=== PATIENT | male | born 1995 | race African-American/Black ===

== ENCOUNTER 2024-03-04 03:23 | Observation (INO) ==
--- NOTE | 2024-03-04 03:57 | Emergency Department Note ---
Impression & Plan Trench feet, Accident caused by excessive cold due to weather conditions, Homeless, Leukocytosis, Drug abuse ED Provider Note NAME: VIKTORIYA PEDERSON AGE: 28 SEX: M : 1995 ARRIVES VIA: Ambulance INFORMANT: Patient ED PROVIDER(S): Rodo Hope DO CHIEF COMPLAINT: foot pain and shortness of breath HPI: Patient is a 28-year-old male with a history of methamphetamine abuse that presents to the ER for bilateral foot pain. He notes he has been out in the rain for the past 2 days. He has been unable to keep his feet dry. He admits to shortness of breath with a cough and congestion. Upon arrival he notes that shortness of breath has resolved. He denies any headache or change in vision. No chest pain. No belly pain. No nausea, vomiting, or diarrhea. No dysuria, urgency, or frequency. No other exacerbating or remitting factors. ADDITIONAL HISTORY OBTAINED: Per HPI Chronic Medical/Social Conditions Affecting Care: Per HPI PAST MEDICAL HISTORY:See Below PAST SURGICAL HISTORY:See Below FAMILY HISTORY:See Below SOCIAL HISTORY:See Below HOME MEDICATIONS:See Below ALLERGIES:See Below VITALS:See Below PHYSICAL EXAMINATION: GENERAL: Sitting up in bed, alert, well appearing, well nourished, no distress, non-toxic EYE EXAM: normal conjunctiva. OROPHARYNX: mucous membranes are moist NECK: supple, no nuchal rigidity, no adenopathy, non-tender LUNGS: Clear to auscultation. Normal chest wall mechanics HEART: no murmurs, S1 normal and S2 normal ABDOMEN: abdomen soft, non-tender, normo-active bowel sounds, no masses, no rebound or guarding. UPPER EXTREMITIES: Flexion and extension of bilateral shoulders elbows wrist and grasp intact. Radial pulse 2 out of 4 bilaterally. He palmar surfaces of the hands are edematous and erythematous. LOWER EXTREMITIES: Mary tension bilateral hips knees ankles intact. DPs 2 out of 4. Gross sensation intact. White discoloration of bilateral feet with erythema laterally over the toes. Foul-smelling. NEURO EXAM: Normal sensorium, cranial nerves II-XII grossly intact, normal speech, no gross weakness of arms, no gross weakness of legs. MEDICAL DECISION MAKING: Patient is a 28-year-old male who presents ER for above-stated complaint. He is homeless and has been out in the cold rain for the past several days. IV was established medicals obtained. Admits to a cough and some mild shortness of breath as well as congestion. Labs show mild leukocytosis of 12,000. No anemia. BMP along LFTs bilirubin and lipase is unremarkable. Viral panel was ordered. Chest x-ray was unremarkable. Patient was given IV fluids and Ativan. He was updated bedside. He was discussed with the hospitalist for further evaluation management and treatment due to trench foot with cold exposure in the setting of a of being homeless as this will clearly worsen and progress. Consults/Care Managements Discussions: Per [facility] Triage Nursing notes reviewed. Limited review of prior medical records performed Vital Signs: reviewed and remarkable for no significant abnormalities Differential diagnosis: Cellulitis, abscess, MRSA infection, DVT, necrotizing fasciitis, dermatitis, drug eruption, allergic reaction, as well as other pathologies. ER treatment provided: See below Diagnostics interpreted by me include EKG and cardiac monitoring as listed below: -Cardiac Monitoring: An order was placed for continuous cardiac monitoring. The monitor shows a rate of 60 with sinus rhythm. -ECG: Sinus rhythm rate is 65 Inverted p waves in the inferior leads QTc 407 -Laboratory studies:Interpreted by me as stated above in MDM and shown below. Imaging studies: Xrays: As interpreted by me: Portable AP upright 1 view of the chest shows no focal infiltrate CTs show: none Past Med/Surg History Medical History No pertinent family history Methamphetamine abuse Drug addiction Surgical History No pertinent past surgical history Social History Smoking Status: Current some day smoker Tobacco Type: Cigarettes Hx Substance Use: Yes Preferred Language: Vincentian Feels Safe at Home: Yes Gender Identity: Male Allergies Allergies Allergy/AdvReac Type Severity Reaction Status Date / Time No Known Allergies Allergy Verified 02/11/24 19:45 Home Meds Home Medications Medication Instructions Recorded Confirmed No Known Home Medications 01/08/24 02/11/24 Results & Data (ED) Vital Signs Vital Signs - 24 hr 03/04/24 03:18 03/04/24 03:18 03/04/24 03:18 Temperature 36.4 C L 36.4 C L Temperature Source Oral Oral Pulse Rate 63 Pulse Rate [Apical] 63 Pulse Rhythm Regular Pulse Rhythm [Apical] Regular Pulse Strength Normal Pulse Strength [Apical] Normal Respiratory Rate 18 18 Respiratory Effort / Characteristics Non-Labored Spontaneous Non-Labored Spontaneous Respiratory Depth Normal Normal Respiratory Pattern Regular Regular Blood Pressure 143/93 H Blood Pressure [Right Arm] 143/93 H Blood Pressure Mean 109 Blood Pressure Mean [Right Arm] 109 Blood Pressure Position Lying Blood Pressure Position [Right Arm] Lying Pulse Oximetry 98 98 98 Oxygen Delivery Method Room Air Room Air Room Air Sepsis Recent Fever Within 48 Hours No Sepsis New/Unexplained Change in Mental Status N/A Sepsis Action Taken by Nursing No Action Required 03/04/24 03:18 03/04/24 03:39 03/04/24 03:44 Temperature Temperature Source Pulse Rate 63 107 H 63 Pulse Rate [Apical] Pulse Rhythm Regular Regular Pulse Rhythm [Apical] Pulse Strength Pulse Strength [Apical] Respiratory Rate 20 18 Respiratory Effort / Characteristics Respiratory Depth Respiratory Pattern Blood Pressure Blood Pressure [Right Arm] Blood Pressure Mean Blood Pressure Mean [Right Arm] Blood Pressure Position Blood Pressure Position [Right Arm] Pulse Oximetry 98 98 Oxygen Delivery Method Room Air Room Air Sepsis Recent Fever Within 48 Hours Sepsis New/Unexplained Change in Mental Status Sepsis Action Taken by Nursing Laboratory Data 03/04/24 03:45 03/04/24 03:45 Lab Results 03/04/24 Range/Units 03:45 WBC 12.57 H (4.8-10.8) K/ul RBC 4.91 (4.70-6.10) M/uL Hgb 13.4 L (14.0-18.0) g/dl Hct 42.0 (42.0-52.0) % MCV 85.5 (80.0-100.0) fL MCH 27.3 (25.0-34.0) pg MCHC 31.9 L (32.0-36.0) g/dL RDW Std Deviation 45.8 (36.4-46.3) fL RDW Coeff of Dominic 14.7 H (11.5-14.5) % Plt Count 405 H (130-400) K/uL MPV 10.1 (9.4-12.4) fL Immature Gran % (Auto) 0.3 % Neut % (Auto) 84.3 % Lymph % (Auto) 5.6 % [place] % (Auto) 9.1 % Eos % (Auto) 0.4 % Baso % (Auto) 0.3 % Neut # (Auto) 10.60 H (1.40-6.50) K/uL Lymph # (Auto) 0.70 L (1.20-3.40) K/uL [place] # (Auto) 1.14 H (0.11-0.59) K/uL Eos # (Auto) 0.05 (0.00-0.50) K/uL Baso # (Auto) 0.04 (0.00-0.20) K/uL Immature Gran # (Auto) 0.04 (0.01-0.20) K/uL Sodium 137 (136-145) mmol/L Potassium 3.7 (3.5-5.1) mmol/L Chloride 102 (98-107) mmol/L Carbon Dioxide 25 (21-32) mmol/L Anion Gap 10 (3-11) BUN 19 (6-23) mg/dl Creatinine 0.97 (0.6-1.4) mg/dl Est Cr Clr Drug Dosing Not Reportable Est GFR ( Amer) 123.5 ml/min Est GFR (Non-Af Amer) 106.6 ml/min BUN/Creatinine Ratio 19.6 (10-20) Glucose 102 H (70-99(Fasting)) mg/dl Calcium 10.1 (8.6-10.3) mg/dl Total Bilirubin 0.7 (0.2-1.0) mg/dl AST 37 (13-39) U/L ALT 54 H (7-52) U/L Alkaline Phosphatase 61 (34-104) U/L Troponin I High Sens 2.9 (0-20) pg/ml Total Protein 8.1 (6.0-8.3) gm/dl Albumin 5.0 (3.4-5.0) gm/dl Globulin 3.1 (2.5-4.0) gm/dl Albumin/Globulin Ratio 1.6 (0.9-2) Lipase 16 (11-82) U/L Discharge Plan Visit Data Chief Complaint: Altered Mental Status Stated Complaint: ALTERED, POSSIBLE DRUGS/ALCOHOL ED Provider: Rodo Hope Discharge Problem: Trench feet, Accident caused by excessive cold due to weather conditions, Homeless, Leukocytosis, Drug abuse Forms Stand Alone Forms: My [facility] Prescriptions Prescriptions: No Action No Known Home Medications Referrals Referrals: PCP,NO [Primary Care Provider] - Discharge Problem: Trench feet Qualifiers: Encounter type: initial encounter Laterality: unspecified laterality Qualified Code(s): T69.029A - Immersion foot, unspecified foot, initial encounter Accident caused by excessive cold due to weather conditions Qualifiers: Encounter type: initial encounter Qualified Code(s): X31.XXXA - Exposure to excessive natural cold, initial encounter Leukocytosis Qualifiers: Leukocytosis type: unspecified Qualified Code(s): D72.829 - Elevated white blood cell count, unspecified
[2024-03-04 04:14] LABS: Basophils # (auto) 0.04 K/uL (0.00-0.20); Basophils % (auto) 0.3 %; Eosinophils # (auto) 0.05 K/uL (0.00-0.50); Eosinophils % (auto) 0.4 %; Hemoglobin 13.4 g/dl (14.0-18.0); Immature Granulocytes # (auto) 0.04 K/uL (0.01-0.20); Immature Granulocytes % (auto) 0.3 %; Lymphocytes % (auto) 5.6 %; Mean Corpuscular Hemoglobin 27.3 pg (25.0-34.0); Mean Corpuscular Hgb Conc 31.9 g/dL (32.0-36.0); Mean Corpuscular Volume 85.5 fL (80.0-100.0); Mean Platelet Volume 10.1 fL (9.4-12.4); Monocytes # (auto) 1.14 K/uL (0.11-0.59); Monocytes % (auto) 9.1 %; Neutrophils % (auto) 84.3 %; Platelet Count 405 K/uL (130-400); RDW Coefficient of Variation 14.7 % (11.5-14.5); RDW Standard Deviation 45.8 fL (36.4-46.3); Red Blood Count 4.91 M/uL (4.70-6.10); White Blood Count 12.57 K/ul (4.8-10.8)
[2024-03-04 04:32] LABS: Alanine Aminotransferase 54 U/L (7-52); Albumin Globulin Ratio 1.6 (0.9-2); Alkaline Phosphatase 61 U/L (34-104); Anion Gap 10 (3-11); Aspartate Aminotransferase 37 U/L (13-39); BUN Creatinine Ratio 19.6 (10-20); Bilirubin,Total 0.7 mg/dl (0.2-1.0); Blood Urea Nitrogen 19 mg/dl (6-23); Calcium 10.1 mg/dl (8.6-10.3); Carbon Dioxide 25 mmol/L (21-32); Chloride 102 mmol/L (98-107); Est GFR (African American) 123.5 ml/min; Est GFR (Non-African American) 106.6 ml/min; Globulin 3.1 gm/dl (2.5-4.0); Glucose 102 mg/dl (70-99(Fasting)); Lipase 16 U/L (11-82); Potassium 3.7 mmol/L (3.5-5.1); Sodium 137 mmol/L (136-145); Total Protein 8.1 gm/dl (6.0-8.3)
[2024-03-04 04:37] LABS: Troponin I High Sensitivity 2.9 pg/ml (0-20)
--- NOTE | 2024-03-04 05:19 | History & Physical Report ---
Date of Service March 04, 2024 Assessment & Plan (1) Trench feet: (2) Drug addiction: (3) Methamphetamine abuse: (4) Homeless: (5) Accident caused by excessive cold due to weather conditions: Plan Trench feet- Patient is homeless and found out in the cold and wet weather, with inability to keep feet dry Consult wound care Zosyn 4.5 g IV every 8 hours Drug abuse/methamphetamine abuse history- Tendency toward agitation Lorazepam 1 mg IV every 6 hours as needed Zyprexa 5 mg IM every 6 hours as needed Dehydration/poor oral intake- Status post 1 L normal saline in the ED Placed on NSS + KCl 20 mill equivalents at 100 mL/h x 2 L Disposition- nutrition services associate will need to be involved History of Present Illness Chief Complaint: The patient was brought into the emergency department via ambulance, after being found out in the excessive cold and rain due to homelessness, and drug abuse Primary Care Provider: NO PCP The patient is a 28-year-old male, frequently seen in the ED for issues related to methamphetamine abuse, who is brought into the emergency department by emergency services after being found out in the cold and rain and concerns regarding his health. Patient is unable to contribute HPI or review of systems due to current mental state Allergies Allergy/AdvReac Type Severity Reaction Status Date / Time No Known Allergies Allergy Verified 02/11/24 19:45 Home Medications Medication Instructions Recorded Confirmed Type No Known Home Medications 01/08/24 02/11/24 History Past Med/Surg History Medical History (Updated 03/04/24 @ 06:20 by Joesph Garner MD) Methamphetamine abuse No pertinent family history Drug addiction Surgical History No pertinent past surgical history Social History Smoking Status: Current some day smoker Tobacco Type: Cigarettes Hx Substance Use: Yes Preferred Language: Tajik Feels Safe at Home: Yes Gender Identity: Male Review of Systems Review of Systems: Review of systems is not possible due to current mental state Physical Exam Physical Exam: The patient is not responsive off, but appears to be hyperalgesic and mildly agitated as nurses are working with him HEENT--PERRL, EOMI, mucous membranes and oropharynx dry. Neck--supple. No JVD. No bruits. Thyroid normal, trachea midline, no adenopathy. Heart--normal S1 and S2. No murmurs, rubs or gallops. Lungs--clear bilaterally, no respiratory distress, no accessory muscle use. Abdomen--normal bowel sounds and soft. Nontender. Nondistended Extremities--bilateral feet with erythema, and sloughing of skin Dermatologic--as above Neurologic--cranial nerves II through XII grossly intact. Rheumatologic-- limited exam Psychiatric--unresponsive Results & Data Results & Data Vital Signs (Past 12 Hours) Vital Signs Temp Pulse Pulse Resp BP BP Pulse Ox 03/04/24 03:44 63 18 98 03/04/24 03:39 107 H 03/04/24 03:18 63 20 98 03/04/24 03:18 36.4 C L 63 18 143/93 H 98 03/04/24 03:18 98 03/04/24 03:18 36.4 C L 63 18 143/93 H 98 O2 Del Method 03/04/24 03:44 Room Air 03/04/24 03:39 03/04/24 03:18 Room Air 03/04/24 03:18 Room Air 03/04/24 03:18 Room Air 03/04/24 03:18 Room Air Laboratory Results Laboratory Results WBC 12.57 K/ul (4.8-10.8) H 03/04/24 03:45 RBC 4.91 M/uL (4.70-6.10) 03/04/24 03:45 Hgb 13.4 g/dl (14.0-18.0) L 03/04/24 03:45 Hct 42.0 % (42.0-52.0) 03/04/24 03:45 MCV 85.5 fL (80.0-100.0) 03/04/24 03:45 MCH 27.3 pg (25.0-34.0) 03/04/24 03:45 MCHC 31.9 g/dL (32.0-36.0) L 03/04/24 03:45 RDW Std Deviation 45.8 fL (36.4-46.3) 03/04/24 03:45 RDW Coeff of Dominic 14.7 % (11.5-14.5) H 03/04/24 03:45 Plt Count 405 K/uL (130-400) H 03/04/24 03:45 MPV 10.1 fL (9.4-12.4) 03/04/24 03:45 Immature Gran % (Auto) 0.3 % 03/04/24 03:45 Neut % (Auto) 84.3 % 03/04/24 03:45 Lymph % (Auto) 5.6 % 03/04/24 03:45 [place] % (Auto) 9.1 % 03/04/24 03:45 Eos % (Auto) 0.4 % 03/04/24 03:45 Baso % (Auto) 0.3 % 03/04/24 03:45 Neut # (Auto) 10.60 K/uL (1.40-6.50) H 03/04/24 03:45 Lymph # (Auto) 0.70 K/uL (1.20-3.40) L 03/04/24 03:45 [place] # (Auto) 1.14 K/uL (0.11-0.59) H 03/04/24 03:45 Eos # (Auto) 0.05 K/uL (0.00-0.50) 03/04/24 03:45 Baso # (Auto) 0.04 K/uL (0.00-0.20) 03/04/24 03:45 Immature Gran # (Auto) 0.04 K/uL (0.01-0.20) 03/04/24 03:45 Sodium 137 mmol/L (136-145) 03/04/24 03:45 Potassium 3.7 mmol/L (3.5-5.1) 03/04/24 03:45 Chloride 102 mmol/L (98-107) 03/04/24 03:45 Carbon Dioxide 25 mmol/L (21-32) 03/04/24 03:45 Anion Gap 10 (3-11) 03/04/24 03:45 BUN 19 mg/dl (6-23) 03/04/24 03:45 Creatinine 0.97 mg/dl (0.6-1.4) 03/04/24 03:45 Est Cr Clr Drug Dosing Not Reportable 03/04/24 03:45 Est GFR ( Amer) 123.5 ml/min 03/04/24 03:45 Est GFR (Non-Af Amer) 106.6 ml/min 03/04/24 03:45 BUN/Creatinine Ratio 19.6 (10-20) 03/04/24 03:45 Glucose 102 mg/dl (70-99(Fasting)) H 03/04/24 03:45 Calcium 10.1 mg/dl (8.6-10.3) 03/04/24 03:45 Total Bilirubin 0.7 mg/dl (0.2-1.0) 03/04/24 03:45 AST 37 U/L (13-39) 03/04/24 03:45 ALT 54 U/L (7-52) H 03/04/24 03:45 Alkaline Phosphatase 61 U/L (34-104) 03/04/24 03:45 Troponin I High Sens 2.9 pg/ml (0-20) 03/04/24 03:45 Total Protein 8.1 gm/dl (6.0-8.3) 03/04/24 03:45 Albumin 5.0 gm/dl (3.4-5.0) 03/04/24 03:45 Globulin 3.1 gm/dl (2.5-4.0) 03/04/24 03:45 Albumin/Globulin Ratio 1.6 (0.9-2) 03/04/24 03:45 Lipase 16 U/L (11-82) 03/04/24 03:45 Code Status & VTE Plan Code Status Full code VTE Prophylaxis Plan VTE Prophylaxis will be ordered: Yes PG Care Time/CCT Total # of Minutes Spent Total Time Spent with Patient: Total time spent is greater than 50% in coordination of care (as documented) at patient's floor/unit and/or counseling patient: Coding Level of Care Code 94179 INT INP/OBS CARE 3/75MIN Diagnoses Trench feet T69.029A Encounter type: initial encounter Laterality: unspecified laterality Drug addiction F19.20 Methamphetamine abuse F15.10 Homeless Z59.00 Accident caused by excessive cold due to weather conditions X31.XXXA Encounter type: initial encounter (1) Trench feet Encounter type: initial encounter Laterality: unspecified laterality Qualified Code(s): T69.029A - Immersion foot, unspecified foot, initial encounter (5) Accident caused by excessive cold due to weather conditions Encounter type: initial encounter Qualified Code(s): X31.XXXA - Exposure to excessive natural cold, initial encounter
[2024-03-04] MEDS: SODIUM CHLORIDE 0.9% 1,000 ML IV ONE (05:40)
[2024-03-04] MEDS: LORazepam 1 MG/1 ML SYR ED Inj Use IV STA (06:34)
[2024-03-04] MEDS: NSS + 20MEQ KCL 20 MEQ/1,000 ML BAG IV SCH (07:00)
--- NOTE | 2024-03-04 07:29 | XRay Report ---
XR chest 1V portable CLINICAL HISTORY: Chest pain, nonspecific TECHNIQUE: Single frontal radiograph of the chest was obtained. Comparison: None available at the time of this dictation. FINDINGS: No lines and tubes are seen. The cardiomediastinal silhouette is normal. The lungs are clear. No evid ence of pleural effusion or pneumothorax. IMPRESSION: No acute chest disease. ACT 112: Negative or not required by law. Electronically signed by: Nick Nichols M.D. 03/04/2024 7:27 AM
--- NOTE | 2024-03-04 07:32 | Communication Note ---
Date of Service: March 04, 2024 28 y/o homeless gentleman admitted with trench foot (nonfreezing cold injury) of both feet due to cold/wet exposure. No systemic hypothermia or frostbite on presentation. examined today and no whitish or necrotic areas, no wounds, has some foot pain, flaky and cracking skin c/w tinea pedis, erythema without induration or significant warmth forefeet and toes -treated with IV fluids, passive rewarming -analgesia - NSAIDS, amitriptyline 50-100 HS or gabapentin can be helpful -unclear whether cellulitis may be just hyperemia from reperfusion, currently on antibiotics, not severe and will narrow to cefazolin. Leukocytosis of 12K in ED, however, CBC appeared hemoconcentrated -miconazole cream for tinea pedis -anticipate discharge tomorrow on oral or no antibiotics -states he may be let back into [facility] tomorrow vs sometimes staying with friends URI - I reviewed the CXR film and it is clear. Resp biofire rhinovirus. Not hypoxic. Supportive care. Seems relatively asymptomatic
[2024-03-04 07:36] LABS: Adenovirus PCR Not Detected (NotDetected); Bordetella parapertussis PCR Not Detected (NotDetected); Bordetella pertussis PCR Not Detected (NotDetected); Chlamydia pneumoniae PCR Not Detected (NotDetected); Coronavirus 229E PCR Not Detected (NotDetected); Coronavirus CoV-2 (COVID19)PCR Not Detected (NotDetected); Coronavirus HKU1 PCR Not Detected (NotDetected); Coronavirus NL63 PCR Not Detected (NotDetected); Coronavirus OC43PCR Not Detected (NotDetected); Human Metapneumovirus PCR Not Detected (NotDetected); Influenza A PCR Not Detected (NotDetected); Influenza B PCR Not Detected (NotDetected); Mycoplasma pneumoniae PCR Not Detected (NotDetected); Parainfluenza Virus 1 PCR Not Detected (NotDetected); Parainfluenza Virus 2 PCR Not Detected (NotDetected); Parainfluenza Virus 3 PCR Not Detected (NotDetected); Parainfluenza Virus 4 PCR Not Detected (NotDetected); Respiratory Syncytial VirusPCR Not Detected (NotDetected); Rhinovirus/Enterovirus PCR DETECTED (NotDetected)
[2024-03-04] MEDS ORDERED: ONDANSETRON INJ 2 MG/ML 2 ML VIAL IV PRN (08:34)
[2024-03-04] MEDS ORDERED: OLANZapine 10 MG/2.1 ML SDV IM PRN (08:34)
[2024-03-04] MEDS ORDERED: LORazepam 1 MG in SYRINGE 0.5 ML IV PRN (08:34)
[2024-03-04] MEDS ORDERED: Patient's HEIGHT &/or WEIGHT Needed SCH (09:15)
[2024-03-04] MEDS: ENOXAPARIN INJ 40 MG/0.4 ML SYR SQ SCH (10:49)
[2024-03-04] MEDS: PANTOprazole 40 MG in SYRINGE 0 ML IV SCH (10:50)
[2024-03-04] MEDS: PIPERACILLIN/TAZOBACTAM 4.5 GM/100 ML BAG IV STA (11:43)
[2024-03-04] MEDS: PIPERACILLIN/TAZOBACTAM 4.5 GM in DEXTROSE 5% MINI-B 100 ML IV SCH (17:05)
[2024-03-04] MEDS: LORazepam 1 MG TAB PO PRN (17:37)
[2024-03-04] MEDS: NICOTINE 21 MG/24 HR TDSY TD SCH (17:38)
[2024-03-04] MEDS: MICONAZOLE NITRATE 2% CR 30 GM TUBE EXT SCH (21:00)
[2024-03-04] MEDS: ceFAZolin 2000MG 2,000 MG/15 ML SYR IV SCH (23:39)
[2024-03-05 07:14] LABS: Hematocrit (blood only) 37.9 % (42.0-52.0); Hemoglobin 12.6 g/dl (14.0-18.0); Mean Corpuscular Hemoglobin 27.8 pg (25.0-34.0); Mean Corpuscular Hgb Conc 33.2 g/dL (32.0-36.0); Mean Corpuscular Volume 83.7 fL (80.0-100.0); Mean Platelet Volume 10.3 fL (9.4-12.4); Platelet Count 335 K/uL (130-400); RDW Coefficient of Variation 14.6 % (11.5-14.5); RDW Standard Deviation 44.8 fL (36.4-46.3); Red Blood Count 4.53 M/uL (4.70-6.10); White Blood Count 5.07 K/ul (4.8-10.8)
[2024-03-05 07:30] LABS: BUN Creatinine Ratio 13.3 (10-20); Calcium 8.7 mg/dl (8.6-10.3); Creatinine Clr Calc Pharmacy 157.1 ml/min; Est GFR (African American) 139.8 ml/min; Est GFR (Non-African American) 120.6 ml/min; Potassium 3.8 mmol/L (3.5-5.1)
[2024-03-05] MEDS: cephALEXin 500 MG CAP PO SCH (13:36)
--- NOTE | 2024-03-05 19:26 | Discharge Summary ---
Date of Service March 05, 2024 Admission HPI Per Admitting Provider The patient is a 28-year-old male, frequently seen in the ED for issues related to methamphetamine abuse, who is brought into the emergency department by emergency services after being found out in the cold and rain and concerns regarding his health. Patient is unable to contribute HPI or review of systems due to current mental state Principal Diagnosis non-freezing cold injury to bilateral feet, possible mild foot cellulitis resolved, tinea pedis, acute toxic metabolic encephalopathy Discharge Exam AOx4 appears well No cough bilateral feet with no whitish or necrotic areas, no wounds, erythema nearly resolved, flaky and cracking skin c/w tinea pedis Discharge Data Allergies Allergy/AdvReac Type Severity Reaction Status Date / Time No Known Allergies Allergy Verified 03/04/24 17:19 Consultations 03/04/24 04:44 ED Decision to Admit Stat Ordered Studies Chest X-Ray 03/04/24 03:44 XR chest 1V portable CLINICAL HISTORY: Chest pain, nonspecific TECHNIQUE: Single frontal radiograph of the chest was obtained. Comparison: None available at the time of this dictation. FINDINGS: No lines and tubes are seen. The cardiomediastinal silhouette is normal. The lungs are clear. No evidence of pleural effusion or pneumothorax. IMPRESSION: No acute chest disease. ACT 112: Negative or not required by law. Electronically signed by: Nick Nichols M.D. 03/04/2024 7:27 AM 03/05/24 06:37 03/05/24 06:37 Hospital Course (1) Trench feet: 28 y/o homeless gentleman admitted with trench foot (nonfreezing cold injury) of both feet due to cold/wet exposure. No systemic hypothermia or frostbite on presentation. Treated with passive rewarming, IV fluids, pain control and resolved. Has some residual numbness of toes - likely to improve over weeks/months but sometimes can be permanent Possible mild bilateral foot cellulitis with leukocytosis treated with IV antibiotics and complete a course of po keflex on discharge. I'm not convinced it was actually infection and may have been all hyperemia from rewarming, but treated because he did have leukocytosis, which resolved. Antifungal cream for tinea pedis. Acute toxic metabolic encephalopathy - on presentation in ED was lethargic, later agitated. This resolved by next morning. Has history of methamphetamine abuse, Utox not done, also had cold exposure and possible infection to account for this. Recommended stopping meth - he has been making efforts at this. (2) Drug addiction: (3) Methamphetamine abuse: (4) Homeless: (5) Accident caused by excessive cold due to weather conditions: Plan Disposition - has been staying with friends, looking into that for today and is able to go back into his long-term 4/5. Total Time Total Time Spent Total Time Spent (In Minutes): 25 minutes Discharge Plan Discharge Items Patient Disposition: Home - Self-Care Reason For Visit: TRENCH FEET, AGITATION, METH ABUSE Discharge Diagnosis: Non-freezing cold injury to feet (trench foot), possible foot cellulitis, tinea pedis, rhinovirus Activity: Resume your previous activity Non-emergency contact: Primary Care Provider Call non-emergency contact if: you have any medication questions and your symptoms worsen Follow-up/Referrals: Bill Irving CRNP [Nurse Practitioner] - 03/09/24 11:00 am (Hospital follow up appointment) PCP,NO [Primary Care Provider] - Diet: Regular Addtl Attending Provider Instructions: Gently wash and dry feet. dust with antifungal powder. Keep warm and dry. Cold exposure can cause numbness and foot pain. Often this resolves over time, but in some cases can be long-term A good place to follow up for primary care is [facility] [address] [place] [address] Pending Studies at Discharge: No Stand-Alone Forms: My [facility] [place], Smoking Cessation Medications and DC Order Prescriptions: New cephalexin 500 mg Capsule 500 mg PO BID Qty: 10 0RF miconazole nitrate 2 % Cream 1 applic EXT BID Qty: 28 0RF Rx Instructions: apply small amount to feet twice a day No Action No Known Home Medications Discharge Orders: Discharge Order (Routine); Ordered 03/05/24 Ordered By: Ericka Holguin/Other Patient Handouts: Addiction Questionnaire, Addiction Recovery Counseling Admission Data Admit Date/Time: 03/04/24 05:18 Attending Provider: Joesph Garner Admit Provider: Joesph Garner Primary Care Provider: PCP,NO Other Providers: Joesph Garner Other Interventions: Discharge Summary Assessment (RN) Last Done: 03/05/24 13:41 Coding Level of Care Code 92801 IN/OBS DISCH 30 MIN/LESS Diagnoses Trench feet T69.029A Encounter type: initial encounter Laterality: unspecified laterality Drug addiction F19.20 Methamphetamine abuse F15.10 Homeless Z59.00 Accident caused by excessive cold due to weather conditions X31.XXXA Encounter type: initial encounter
[2024-03-05] MEDS ORDERED: cephALEXin 500 MG CAP PO SCH (21:00)
--- NOTE | 2024-03-07 00:18 | Electrocardiogram Report ---
Test Reason : Blood Pressure : / mmHG Vent. Rate : 065 BPM Atrial Rate : 065 BPM P-R Int : 184 ms QRS Dur : 092 ms QT Int : 392 ms P-R-T Axes : -88 066 066 degrees QTc Int : 407 ms Unusual P axis, possible ectopic atrial rhythm Abnormal ECG When compared with ECG of 11-FEB-2024 03:24, Ectopic atrial rhythm has replaced Sinus rhythm Confirmed by Krish Curry ([id number]) on 03/07/2024 12:17:55 AM Referred By: NO PCP Confirmed By:Krish Curry
== END 2024-03-05 14:15 | disposition home or self-care (01) ==
LOC: SUATTDRO → ED 03:23 → EDINP 05:18 → INTOOBSV 05:18 → 3E 08:34

== ENCOUNTER 2024-03-28 10:17 | Observation (INO) ==
--- NOTE | 2024-03-28 11:04 | Emergency Department Note ---
Impression & Plan Altered mental status ED Provider Note NAME: VIKTORIYA PEDERSON AGE: 28 SEX: Male INFORMANT: Patient ED PROVIDER(S): Jose Hare MD CHIEF COMPLAINT: Altered mental status PLAN: Disposition: Admitted Outpatient prescription management: none Referral: None MEDICAL DECISION MAKING: Patient presented due to altered mental status. Admitted to meth and marijuana. The Ativan was initially ordered for sedation however it did take multiple times to get an IV. During that time I did order sublingual Ativan. IV established. Patient was hydrated. Ativan order placed however the patient declined. Patient was monitored. The patient has an unremarkable alcohol, Tylenol, and salicylate testing. His CBC and chemistry panel are unremarkable. Mild elevation of total CK. Cardiac troponin was negative. His ECG did show a sinus rhythm. The patient's altered mental status slowly improved although he was still responding to internal stimuli. He was requesting a room to recover. I did discuss options with him. At this point due to his slow clearance of this episode I consulted with internal medicine. Discussed the case with of the hospitalist service. We reviewed the situation and discussed admission until his mental status improved. The patient was evaluated by internal medicine and was cooperative for admission. He then had a brief time where he was asking to leave as he was very hungry. The patient was given food. He was reassessed by myself as well as Luis in the PA for the internal medicine team. The patient was more calm and directable. He was in agreement with staying. Staff here noted that from his prior visits that he is approaching closer to his baseline. Patient was admitted for further management. Care/management discussed with: none Level of care consideration(s): After review of the information above and other included data, I feel the patient requires escalation of care to admission Triage Nursing notes: reviewed and agree them. Vital Signs: reviewed and remarkable for no significant abnormalities Additional History obtained from: none Chronic Medical/Social Conditions affecting care: Homelessness, drug abuse Prior/ Outside/ External records reviewed: none Differential Diagnosis: Toxicologic infection, hypoglycemia, electrolyte abnormalities, overdose, cardiac sources, intracerebral event, neurologic, trauma, as well as other pathologies. Diagnostics, independently interpreted by me: ECG: Twelve-lead ECG reveals a sinus rhythm with sinus arrhythmia at [address] elevation or depression. Cardiac Monitoring: Cardiac monitoring ordered by me: The patient was placed on continuous cardiac monitoring and observed. It revealed a sinus rhythm at 73 bpm without ectopy or evidence of dysrhythmia. Medical decision rules: none Imaging studies: Head CT: A noncontrast CT scan of the head was performed and was negative for tumor, fracture, intracranial hemorrhage, or other acute pathology.Chest x-ray. Findings: A chest x-ray was performed and revealed no pneumothorax, effusion, infiltrate, pulmonary edema, free air under the diaphragm, or wide mediastinum. Impression: No acute disease. HPI: 28 year old Male arrives for evaluation of altered mental. Patient was reportedly downtown and was not responding to bystanders. He was appearing to be praying and responding to internal stimuli. Patient was evaluated by EMS and brought to the emergency department. He admitted to methamphetamine use as well as marijuana use. He denies any pain. Patient is not operative due to his mental status. History is limited.. PAST MEDICAL HISTORY: See Below, trench foot, methamphetamine abuse, homelessness PAST SURGICAL HISTORY: See Below, SOCIAL HISTORY: See Below, drug abuse HOME MEDICATIONS: See Below ALLERGIES: See Below VITALS: See Below PHYSICAL EXAMINATION: GENERAL: Awake, alert, mildly agitated appearing, in no distress HENT: Normocephalic, atraumatic. Oropharynx unremarkable. EYES: Normal conjunctiva. Sclera non-icteric. NECK: Inspection normal. Non-tender. Supple. No nuchal rigidity. FROM. No masses. RESPIRATORY: Clear to auscultation. No wheezes. No rales. Normal respiratory effort. CARDIAC: Normal rate. Normal rhythm. No murmurs. No rubs. Extremities warm and well perfused. Pulses equal. No JVD. GI: Soft, non-distended. No tenderness to palpation. No rebound or guarding. No masses. RECTAL: Deferred. MUSCULOSKELETAL: Atraumatic. Chest examination reveals no tenderness. The back is symmetrical on inspection without obvious abnormality. There is no CVA tenderness to palpation. No joint edema. LOWER EXTREMITIES: Calves are equal size bilaterally and non-tender. No edema. Minimal erythematous discoloration of the feet but no evidence of cellulitis or abscess. NEURO: Altered sensorium. Agitated no focal sensory or motor deficits noted. SKIN: No rash or jaundice noted. PROCEDURES: none CRITICAL CARE: none OBSERVATION NOTE: none Past Med/Surg History Medical History (Updated 03/28/24 @ 11:04 by Jose Hare MD) Accident caused by excessive cold due to weather conditions Trench feet Methamphetamine abuse No pertinent family history Drug addiction Surgical History No pertinent past surgical history Social History Smoking Status: Unknown if ever smoked Tobacco Type: Cigarettes Hx Alcohol Use: No Hx Substance Use: Yes Last Used Substance Other:: yesterday Preferred Language: Amharic Beliefs That Will Affect Care: None Current Living Situation: Homeless Feels Safe at Home: Declines to Answer Gender Identity: Male Assistive Devices: None Allergies Allergies Allergy/AdvReac Type Severity Reaction Status Date / Time No Known Allergies Allergy Verified 03/04/24 17:19 Home Meds Previous Rx's Medication Instructions Recorded miconazole nitrate 2 % topical 1 applic EXT BID #28 grams 03/05/24 cream Results & Data (ED) Vital Signs Vital Signs - 24 hr 03/28/24 10:28 03/28/24 10:47 03/28/24 12:04 Temperature 36.9 C Temperature Source Oral Pulse Rate 88 64 Pulse Rate [Apical] Pulse Rhythm Regular Pulse Strength Normal Respiratory Rate 18 Respiratory Effort / Characteristics Non-Labored Spontaneous Respiratory Depth Normal Respiratory Pattern Regular Blood Pressure 133/56 L Blood Pressure [Right Arm] Blood Pressure Mean 81 Blood Pressure Mean [Right Arm] Blood Pressure Position Semi-fowlers Pulse Oximetry 97 100 Oxygen Delivery Method Room Air Room Air Sepsis Recent Fever Within 48 Hours No Sepsis New/Unexplained Change in Mental Status No Sepsis Action Taken by Nursing No Action Required 03/28/24 12:34 03/28/24 12:34 03/28/24 13:55 Temperature 36.7 C Temperature Source Axillary Pulse Rate Pulse Rate [Apical] 64 84 Pulse Rhythm Pulse Strength Respiratory Rate 20 16 Respiratory Effort / Characteristics Non-Labored Respiratory Depth Normal Respiratory Pattern Blood Pressure Blood Pressure [Right Arm] 134/85 128/76 Blood Pressure Mean Blood Pressure Mean [Right Arm] 101 93 Blood Pressure Position Pulse Oximetry 98 100 99 Oxygen Delivery Method Room Air Room Air Room Air Sepsis Recent Fever Within 48 Hours Sepsis New/Unexplained Change in Mental Status Sepsis Action Taken by Nursing 03/28/24 14:58 03/28/24 16:04 Temperature Temperature Source Pulse Rate 73 Pulse Rate [Apical] 69 Pulse Rhythm Pulse Strength Respiratory Rate 18 Respiratory Effort / Characteristics Non-Labored Respiratory Depth Normal Respiratory Pattern Blood Pressure Blood Pressure [Right Arm] 143/88 H Blood Pressure Mean Blood Pressure Mean [Right Arm] 106 Blood Pressure Position Pulse Oximetry 98 Oxygen Delivery Method Room Air Sepsis Recent Fever Within 48 Hours Sepsis New/Unexplained Change in Mental Status Sepsis Action Taken by Nursing Laboratory Data 03/28/24 12:52 03/28/24 10:48 Lab Results 03/28/24 03/28/24 Range/Units 10:48 12:52 WBC Cancelled 6.14 RBC Cancelled 4.68 L Hgb Cancelled 13.0 L Hct Cancelled 40.0 L MCV Cancelled 85.5 MCH Cancelled 27.8 MCHC Cancelled 32.5 RDW Std Deviation Cancelled 43.5 RDW Coeff of Dominic Cancelled 14.0 Plt Count Cancelled 355 MPV Cancelled 10.5 Immature Gran % (Auto) Cancelled 0.2 Neut % (Auto) Cancelled 66.1 Lymph % (Auto) Cancelled 19.9 Izard % (Auto) Cancelled 13.0 Eos % (Auto) Cancelled 0.5 Baso % (Auto) Cancelled 0.3 Neut # (Auto) Cancelled 4.06 Lymph # (Auto) Cancelled 1.22 Izard # (Auto) Cancelled 0.80 H Eos # (Auto) Cancelled 0.03 Baso # (Auto) Cancelled 0.02 Immature Gran # (Auto) Cancelled 0.01 Absolute Nucleated RBC Cancelled Nucleated RBC % (auto) Cancelled Neutrophils % (Manual) Cancelled Band Neutrophils % Cancelled Lymphocytes % (Manual) Cancelled Prolymphocyte % Cancelled Reactive Lymphs % (Man) Cancelled Monocytes % (Manual) Cancelled Eosinophils % (Manual) Cancelled Basophils % (Manual) Cancelled Metamyelocytes % (Man) Cancelled Myelocytes % (Man) Cancelled Promyelocytes % (Man) Cancelled Blast Cells % (Manual) Cancelled Plasma Cell % (Manual) Cancelled Other Cells % Cancelled Nucleated RBC % Cancelled Neutrophils # (Manual) Cancelled Band Neutrophils # Cancelled Total Absolute Neuts Cancelled Lymphocytes # (Manual) Cancelled Prolymphocyte # Cancelled Reactive Lymphs # Cancelled Total Abs Lymphocytes Cancelled Monocytes # (Manual) Cancelled Eosinophils # (Manual) Cancelled Basophils # (Manual) Cancelled Metamyelocytes # (Man) Cancelled Myelocytes # (Manual) Cancelled Promyelocytes # (Man) Cancelled Blast Cells # (Man) Cancelled Plasma Cell # (Manual) Cancelled Other Cells # Cancelled Nucleated RBCs # (Man) Cancelled Hypersegmented Neuts Cancelled Hyposegmented Neuts Cancelled Hypogranular Neuts Cancelled Large Granular Lymphs Cancelled # Lrg Granular Lymphs Cancelled Hairy Cells Cancelled Smudge Cells Cancelled Toxic Granulation Cancelled Toxic Vacuolation Cancelled Dohle Bodies Cancelled Zulema Rods Cancelled Platelet Estimate Cancelled Hypogranular Platelets Cancelled Giant Platelets Cancelled Platelet Satelliting Cancelled RBC Morphology Cancelled Polychromasia Cancelled Hypochromasia Cancelled Poikilocytosis Cancelled Basophilic Stippling Cancelled Anisocytosis Cancelled Microcytosis Cancelled Macrocytosis Cancelled Spherocytes Cancelled Pappenheimer Bodies Cancelled Sickle Cells Cancelled Target Cells Cancelled Tear Drop Cells Cancelled Ovalocytes Cancelled Stomatocytes Cancelled [place] Bodies Cancelled Echinocytes Cancelled Acanthocytes (Spur) Cancelled Rouleaux Cancelled RBC Agglutinates Cancelled Schistocytes Cancelled Sezary Cell Cancelled Sodium 137 (136-145) mmol/L Potassium 4.0 (3.5-5.1) mmol/L Chloride 102 (98-107) mmol/L Carbon Dioxide 23 (21-32) mmol/L Anion Gap 12 H (3-11) BUN 17 (6-23) mg/dl Creatinine 0.90 (0.6-1.4) mg/dl Est Cr Clr Drug Dosing 143.2 ml/min Est GFR ( Amer) 135.2 ml/min Est GFR (Non-Af Amer) 116.6 ml/min BUN/Creatinine Ratio 18.9 (10-20) Glucose 98 (70-99(Fasting)) mg/dl Calcium 10.4 H (8.6-10.3) mg/dl Magnesium 2.1 (1.7-2.4) mg/dl Total Bilirubin 0.7 (0.2-1.0) mg/dl AST 35 (13-39) U/L ALT 30 (7-52) U/L Alkaline Phosphatase 63 (34-104) U/L Total Creatine Kinase 601 H (30-223) U/L Troponin I High Sens 3.4 (0-20) pg/ml Total Protein 8.3 (6.0-8.3) gm/dl Albumin 5.2 H (3.4-5.0) gm/dl Globulin 3.1 (2.5-4.0) gm/dl Albumin/Globulin Ratio 1.7 (0.9-2) Salicylates < 3.0 L (3.0-30) mg/dl Acetaminophen < 3 L (10-30) ug/ml Ethyl Alcohol mg/dL < 10.0 (<10.0) mg/dl Blood Parasites ID Cancelled Administered Medications Discontinued Medications Sodium Chloride (Nss) 1,000 mls @ 999 mls/hr IV .Q1H1M IGLESIA Stop: 03/28/24 12:00 Last Infusion: 03/28/24 13:47 Dose: Infused Documented By: Admin: 03/28/24 12:33 Dose: 999 mls/hr Documented By: ES Lorazepam (Lorazepam 1 Mg/1 Ml Syr Ed Inj Use) 2 mg IV ONE STA Stop: 03/28/24 10:48 Last Admin: 03/28/24 12:20 Dose: Not Given Documented By: ES Lorazepam (Lorazepam 1 Mg Tab) 2 mg SL NOW STA Stop: 03/28/24 12:00 Last Admin: 03/28/24 12:20 Dose: Not Given Documented By: ES Lorazepam (Lorazepam 1 Mg Tab) Confirm Administered Dose 2 mg .ROUTE .STK-MED ONE Stop: 03/28/24 16:40 Last Admin: 03/28/24 16:40 Dose: 2 mg Documented By: JADEN Imaging Data Radiologist's Impression: Chest X-Ray 03/28/24 10:48 XR chest 1V portable CLINICAL HISTORY: AMS, Overdose COMPARISON STUDY: Chest radiograph March 04, 2024. FINDINGS: Lung volumes are normal. Lungs are clear. There is no pneumothorax or pleural effusion. Cardiac size is normal. Mediastinal contours are normal. There is no evidence for pulmonary edema. IMPRESSION: No acute cardiopulmonary findings. ACT 112: Negative or not required by law. Electronically signed by: Adolfo Duran M.D. 03/28/2024 11:[address] 03/28/24 10:48 CT OF THE HEAD WITHOUT CONTRAST CLINICAL HISTORY: AMS, overdose COMPARISON STUDY: Head CT February 11, 2024. CT DOSE: 688.24 mGy.cm TECHNIQUE: Helical axial images of the head were obtained without IV contrast. Automated exposure control was utilized for the study. A dose lowering technique was utilized adhering to the principles of ALARA. FINDINGS: No acute intracranial hemorrhage, midline shift or mass effect is present. The ventricular system is unremarkable. The basal cisterns are patent. No extra-axial collections are present. There are no findings to suggest acute dural sinus thrombosis or acute territorial infarct. There are no calvarial fractures. IMPRESSION: No acute intracranial findings. ACT 112: Negative or not required by law. Electronically signed by: Adolfo Duran M.D. 03/28/2024 11:31 AM Discharge Plan Visit Data Chief Complaint: Altered Mental Status Stated Complaint: ALTERED, ED Provider: Jose Hare Discharge Problem: Altered mental status Forms Stand Alone Forms: [facility] Prescriptions Prescriptions: No Action miconazole nitrate 2 % Cream 1 applic EXT BID Qty: 28 0RF Rx Instructions: apply small amount to feet twice a day Referrals Referrals: PCP,NO [Primary Care Provider] -
--- NOTE | 2024-03-28 11:14 | XRay Report ---
XR chest 1V portable CLINICAL HISTORY: AMS, Overdose COMPARISON STUDY: Chest radiograph March 04, 2024. FINDINGS: Lung volumes are normal. Lungs are clear. There is no pneumothorax or pleural effusion. Car diac size is normal. Mediastinal contours are normal. There is no evidence for pulmonary edema. IMPRESSION: No acute cardiopulmonary findings. ACT 112: Negative or not required by law. Electronically signed by: Adolfo Duran M.D. 03/28/2024 11:12 AM
[2024-03-28 11:24] LABS: Albumin Globulin Ratio 1.7 (0.9-2); Albumin Level 5.2 gm/dl (3.4-5.0); BUN Creatinine Ratio 18.9 (10-20); Bilirubin,Total 0.7 mg/dl (0.2-1.0); Calcium 10.4 mg/dl (8.6-10.3); Creatinine Clr Calc Pharmacy 143.2 ml/min; Est GFR (African American) 135.2 ml/min; Est GFR (Non-African American) 116.6 ml/min; Globulin 3.1 gm/dl (2.5-4.0); Magnesium 2.1 mg/dl (1.7-2.4); Total Protein 8.3 gm/dl (6.0-8.3)
[2024-03-28 11:31] LABS: Troponin I High Sensitivity 3.4 pg/ml (0-20)
--- NOTE | 2024-03-28 11:33 | CT Scan Report ---
CT OF THE HEAD WITHOUT CONTRAST CLINICAL HISTORY: AMS, overdose COMPARISON STUDY: Head CT February 11, 2024. CT DOSE: 688.24 mGy.cm TECHNIQUE: Helical axial images of the head were obtained without IV contrast. Automated exposure con trol was utilized for the study. A dose lowering technique was utilized adhering to the principles o f ALARA. FINDINGS: No acute intracranial hemorrhage, midline shift or mass effect is present. The ventricular system is unremarkable. The basal cisterns are patent. No extra-axial collections are present. There are no findings to suggest acute dural sinus thrombosis or acute territorial infarct. There are no ca lvarial fractures. IMPRESSION: No acute intracranial findings. ACT 112: Negative or not required by law. Electronically signed by: Adolfo Duran M.D. 03/28/2024 11:31 AM
[2024-03-28 12:01] LABS: Acetaminophen < 3 ug/ml (10-30); Salicylate < 3.0 mg/dl (3.0-30)
[2024-03-28] MEDS: LORazepam 1 MG/1 ML SYR ED Inj Use IV STA (12:20)
[2024-03-28] MEDS: LORazepam 1 MG TAB SL STA (12:20)
[2024-03-28] MEDS: SODIUM CHLORIDE 0.9% 1,000 ML IV SCH (12:33)
[2024-03-28 13:08] LABS: Basophils # (auto) 0.02 K/uL (0.00-0.20); Basophils % (auto) 0.3 %; Eosinophils # (auto) 0.03 K/uL (0.00-0.50); Eosinophils % (auto) 0.5 %; Immature Granulocytes # (auto) 0.01 K/uL (0.01-0.20); Immature Granulocytes % (auto) 0.2 %; Lymphocytes # (auto) 1.22 K/uL (1.20-3.40); Lymphocytes % (auto) 19.9 %; Mean Corpuscular Hemoglobin 27.8 pg (25.0-34.0); Mean Corpuscular Hgb Conc 32.5 g/dL (32.0-36.0); Mean Corpuscular Volume 85.5 fL (80.0-100.0); Mean Platelet Volume 10.5 fL (9.4-12.4); Neutrophils # (auto) 4.06 K/uL (1.40-6.50); Neutrophils % (auto) 66.1 %; Platelet Count 355 K/uL (130-400); RDW Standard Deviation 43.5 fL (36.4-46.3); Red Blood Count 4.68 M/uL (4.70-6.10); White Blood Count 6.14 K/ul (4.8-10.8)
--- NOTE | 2024-03-28 16:10 | History & Physical Report ---
Date of Service March 28, 2024 Assessment & Plan (1) Methamphetamine abuse: Plan: Patient was picked up by EMS for altered mental status, is reportedly on methamphetamine and reportedly saying he has HIV Unable to obtain history at time of admission Urine drug screen ordered, pending UA ordered, pending Hx of admissions for methamphetamine; meth (+), MDMA (+), and marijuana (+) on 02/12/24 Spoke with case management; unclear if he can be a 1:1 as he has not endorsed SI or thoughts of self-harm Will need to discuss with patient once he becomes more lucid Case management consulted as patient will likely need licensed master social worker A.m. CBC, BMP (2) Altered mental status: Plan: DDx includes methamphetamine intoxication, acute psychosis, schizophrenia, among other etiologies Hx of multiple [place] ED visits for IV methamphetamine use, hallucinations Admitted to [facility] for mental health treatment in the past, but signed out Ativan 1 mg IV q6h as needed for aggression/agitation Zyprexa ODT 5 mg q6h as needed for aggression/agitation (3) Homeless: Plan: Reportedly homeless Plan Disposition: Obs -admit to PCU telemetry Full code Regular diet starting tomorrow morning VTE PPx: Teds History of Present Illness Chief Complaint: Altered mental status Primary Care Provider: NO PCP Jesús is a 28-year-old male with PMH of homelessness, trench foot, and methamphetamine abuse. He presented via EMS by bystanders for altered mental status on 03/28. Patient reports that he was smoking meth and has HIV. Patient is a poor historian at time of admission. He zones in and out of focus, and is initially more lucid and able to respond to questions, then becomes somnolent and talks to himself. For instance, he is able to confirm that he is in a hospital bathroom and is able to confirm his date of , then will stop responding to questions. He paces around the room. Patient is hypertensive at 143/88 at time of admission; vitals otherwise stable. ED course: Ativan 2 mg SL NSS 1000mL IV ROS is difficult to obtain, he does deny chest pain, SOB, fever, abdominal pain, N/V/D, or pain anywhere at time of admission. Spoke in depth with case management regarding 302 and 1:1 status: Medical assessment is that the patient is currently in an altered state, and that he does not exhibit capacity to make informed medical decisions at this time. While he has reportedly been amenable to both staying and getting a room upstairs, he will occasionally say that he wants to leave. We are unable to hold him AGAINST MEDICAL ADVICE at this time if he wishes to leave. Case management has been consulted and is aware of his situation. Allergies Allergy/AdvReac Type Severity Reaction Status Date / Time No Known Allergies Allergy Verified 03/04/24 17:19 Home Medications Medication Instructions Recorded Confirmed Type miconazole nitrate 2 % topical 1 applic EXT BID #28 grams 03/05/24 03/28/24 Rx cream Past Med/Surg History Medical History (Updated 03/28/24 @ 11:04 by Jose Hare MD) Accident caused by excessive cold due to weather conditions Trench feet Methamphetamine abuse No pertinent family history Drug addiction Surgical History No pertinent past surgical history Social History Smoking Status: Current every day smoker Tobacco Type: Cigarettes Hx Alcohol Use: No Hx Substance Use: Yes Last Used Substance Other:: yesterday Preferred Language: Ukrainian Communication Ability Comment: E[employer] 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 Beliefs That Will Affect Care: None Current Living Situation: Homeless Feels Safe at Home: Declines to Answer Gender Identity: Male Assistive Devices: None Review of Systems Review of Systems: See HPI above Physical Exam Physical Exam: General: Altered; anxious; pacing the room; non-toxic appearing; cachectic; SpO2 98% on RA HEENT: normocephalic, atraumatic; no scleral icterus; PERRLA w/ EOMs intact; moist mucus membrane; unable to assess vision; hearing intact Neck: supple; trachea midline Skin: warm, dry without signs of tenting; no cyanosis; no rashes, bruising, lesions, or erythema noted CV: chest wall NTP; RRR; S1/S2 normal; no murmurs/rubs/gallops; pulses intact and symmetric at radial, DP, and PT Lungs: no acute respiratory distress; symmetrical chest wall expansion; clear breath sounds across all lung perez w/o adventitious sounds; no wheezing ABD: Soft, NTP; BS present; no rebound/guarding; no distention MSK: no tics or fasciculations; no edema noted in the LEs b/l, nonerythematous Neuro: At times he is oriented, but he often fades in and out of orientation; fluent speech; unable to assess for sensation Results & Data Results & Data Vital Signs (Past 12 Hours) Vital Signs Temp Pulse Pulse Resp BP BP Pulse Ox 03/28/24 16:04 73 03/28/24 14:58 69 18 143/88 H 98 03/28/24 13:55 36.7 C 84 16 128/76 99 03/28/24 12:34 64 20 134/85 100 03/28/24 12:34 98 03/28/24 12:04 64 03/28/24 10:47 100 03/28/24 10:28 36.9 C 88 18 133/56 L 97 O2 Del Method 03/28/24 16:04 03/28/24 14:58 Room Air 03/28/24 13:55 Room Air 03/28/24 12:34 Room Air 03/28/24 12:34 Room Air 03/28/24 12:04 03/28/24 10:47 Room Air 03/28/24 10:28 Room Air Laboratory Results Abnormal lab results 03/28/24 03/28/24 Range/Units 10:48 12:52 RBC 4.68 L (4.70-6.10) M/uL Hgb 13.0 L (14.0-18.0) g/dl Hct 40.0 L (42.0-52.0) % Coles # (Auto) 0.80 H (0.11-0.59) K/uL Anion Gap 12 H (3-11) Calcium 10.4 H (8.6-10.3) mg/dl Total Creatine Kinase 601 H (30-223) U/L Albumin 5.2 H (3.4-5.0) gm/dl Salicylates < 3.0 L (3.0-30) mg/dl Acetaminophen < 3 L (10-30) ug/ml Diagnostic Findings Chest X-Ray 03/28/24 10:48 XR chest 1V portable CLINICAL HISTORY: AMS, Overdose COMPARISON STUDY: Chest radiograph March 04, 2024. FINDINGS: Lung volumes are normal. Lungs are clear. There is no pneumothorax or pleural effusion. Cardiac size is normal. Mediastinal contours are normal. There is no evidence for pulmonary edema. IMPRESSION: No acute cardiopulmonary findings. ACT 112: Negative or not required by law. Electronically signed by: Adolfo Duran M.D. 03/28/2024 11:[address] 03/28/24 10:48 CT OF THE HEAD WITHOUT CONTRAST CLINICAL HISTORY: AMS, overdose COMPARISON STUDY: Head CT February 11, 2024. CT DOSE: 688.24 mGy.cm TECHNIQUE: Helical axial images of the head were obtained without IV contrast. Automated exposure control was utilized for the study. A dose lowering technique was utilized adhering to the principles of ALARA. FINDINGS: No acute intracranial hemorrhage, midline shift or mass effect is present. The ventricular system is unremarkable. The basal cisterns are patent. No extra-axial collections are present. There are no findings to suggest acute dural sinus thrombosis or acute territorial infarct. There are no calvarial fractures. IMPRESSION: No acute intracranial findings. ACT 112: Negative or not required by law. Electronically signed by: Adolfo Duran M.D. 03/28/2024 11:31 AM ECG Additional Comments: ECG reveals sinus rhythm with marked sinus arrhythmia at 60 bpm; QTc 454 Code Status & VTE Plan Code Status Full code (patient does not exhibit capacity to make medical decisions at this time; no family or contacts available at time of admission) Supervising Physician Co-Signing Physician Notes The patient was seen by me. The chart was reviewed. Case discussed with GARRETT Rocha. Agree with assessment and plan PG Care Time/CCT Total # of Minutes Spent Total Time Spent with Patient: Total time spent is greater than 50% in coordination of care (as documented) at patient's floor/unit and/or counseling patient: C[place] [address] INT INP/OBS CARE 3/75MIN Patient Type Established Medical Decision Making High Complexity Diagnoses Methamphetamine abuse F15.10 Altered mental status R41.82 Homeless Z59.00
[2024-03-28] MEDS: LORazepam 1 MG TAB ONE (16:40)
[2024-03-28] MEDS ORDERED: LORazepam 1 MG in SYRINGE 0.5 ML IV PRN (20:30)
[2024-03-28] MEDS ORDERED: OLANZapine ZYDIS 5 MG ORALLY DIS. TAB PO PRN (20:30)
[2024-03-28] MEDS ORDERED: ACETAMINOPHEN 325 MG TAB PO PRN (20:30)
[2024-03-28] MEDS ORDERED: ONDANSETRON INJ 2 MG/ML 2 ML VIAL IV PRN (20:30)
[2024-03-28] MEDS: MICONAZOLE NITRATE 2% CR 30 GM TUBE EXT SCH (21:09)
[2024-03-29 07:12] LABS: Basophils # (auto) 0.03 K/uL (0.00-0.20); Basophils % (auto) 0.7 %; Eosinophils # (auto) 0.11 K/uL (0.00-0.50); Eosinophils % (auto) 2.6 %; Hematocrit (blood only) 40.5 % (42.0-52.0); Hemoglobin 12.8 g/dl (14.0-18.0); Immature Granulocytes # (auto) 0.02 K/uL (0.01-0.20); Immature Granulocytes % (auto) 0.5 %; Lymphocytes # (auto) 1.06 K/uL (1.20-3.40); Lymphocytes % (auto) 25.2 %; Mean Corpuscular Hemoglobin 26.9 pg (25.0-34.0); Mean Corpuscular Hgb Conc 31.6 g/dL (32.0-36.0); Mean Corpuscular Volume 85.3 fL (80.0-100.0); Mean Platelet Volume 10.6 fL (9.4-12.4); Monocytes # (auto) 0.55 K/uL (0.11-0.59); Monocytes % (auto) 13.1 %; Neutrophils # (auto) 2.44 K/uL (1.40-6.50); Neutrophils % (auto) 57.9 %; Platelet Count 334 K/uL (130-400); RDW Coefficient of Variation 13.9 % (11.5-14.5); RDW Standard Deviation 43.3 fL (36.4-46.3); Red Blood Count 4.75 M/uL (4.70-6.10); White Blood Count 4.21 K/ul (4.8-10.8)
[2024-03-29 07:23] LABS: BUN Creatinine Ratio 14.8 (10-20); Calcium 8.7 mg/dl (8.6-10.3); Creatinine Clr Calc Pharmacy 158.9 ml/min; Est GFR (African American) 141.2 ml/min; Est GFR (Non-African American) 121.8 ml/min; Potassium 3.7 mmol/L (3.5-5.1)
--- NOTE | 2024-03-29 10:45 | Electrocardiogram Report ---
Test Reason : Blood Pressure : / mmHG Vent. Rate : 060 BPM Atrial Rate : 060 BPM P-R Int : 192 ms QRS Dur : 092 ms QT Int : 454 ms P-R-T Axes : 000 064 056 degrees QTc Int : 454 ms Sinus rhythm with marked sinus arrhythmia Otherwise normal ECG When compared with ECG of 04-MAR-2024 04:51, Sinus rhythm has replaced Ectopic atrial rhythm Confirmed by William Del Valle ([id number]) on 03/29/2024 10:44:53 AM Referred By: Confirmed By:William Del Valle
--- NOTE | 2024-03-29 11:37 | Discharge Summary ---
Date of Service March 29, 2024 Admission HPI Per Admitting Provider Jesús is a 28-year-old male with PMH of homelessness, trench foot, and methamphetamine abuse. He presented via EMS by bystanders for altered mental status on 03/28. Patient reports that he was smoking meth and has HIV. Patient is a poor historian at time of admission. He zones in and out of focus, and is initially more lucid and able to respond to questions, then becomes somnolent and talks to himself. For instance, he is able to confirm that he is in a hospital bathroom and is able to confirm his date of , then will stop responding to questions. He paces around the room. Patient is hypertensive at 143/88 at time of admission; vitals otherwise stable. ED course: Ativan 2 mg SL NSS 1000mL IV ROS is difficult to obtain, he does deny chest pain, SOB, fever, abdominal pain, N/V/D, or pain anywhere at time of admission. Spoke in depth with case management regarding 302 and 1:1 status: Medical assessment is that the patient is currently in an altered state, and that he does not exhibit capacity to make informed medical decisions at this time. While he has reportedly been amenable to both staying and getting a room upstairs, he will occasionally say that he wants to leave. We are unable to hold him AGAINST MEDICAL ADVICE at this time if he wishes to leave. Case management has been consulted and is aware of his situation. Admission Exam Per Admitting Provider General: Altered; anxious; pacing the room; non-toxic appearing; cachectic; SpO2 98% on RA HEENT: normocephalic, atraumatic; no scleral icterus; PERRLA w/ EOMs intact; moist mucus membrane; unable to assess vision; hearing intact Neck: supple; trachea midline Skin: warm, dry without signs of tenting; no cyanosis; no rashes, bruising, le sions, or erythema noted CV: chest wall NTP; RRR; S1/S2 normal; no murmurs/rubs/gallops; pulses intact and symmetric at radial, DP, and PT Lungs: no acute respiratory distress; symmetrical chest wall expansion; clear breath sounds across all lung perez w/o adventitious sounds; no wheezing ABD: Soft, NTP; BS present; no rebound/guarding; no distention MSK: no tics or fasciculations; no edema noted in the LEs b/l, nonerythematous Neuro: At times he is oriented, but he often fades in and out of orientation; fluent speech; unable to assess for sensation Principal Diagnosis Methamphetamine abuse Toxic encephalopathy. Resolved. Back to baseline Discharge Exam General: Awake, conversant, pacing in the room and the hallway Heart: S1, S2/regular rate and rhythm, no murmur rubs or gallops Lungs: Clear to auscultation bilaterally. Normal effort Abdomen: Soft/nontender/nondistended. No hepatosplenomegaly Extremities: No clubbing/cyanosis. No edema Behavior: Appropriate, cooperative Discharge Data Allergies Allergy/AdvReac Type Severity Reaction Status Date / Time No Known Allergies Allergy Verified 03/04/24 17:19 Consultations 03/28/24 16:09 ED Decision to Admit Stat Ordered Studies 03/28/24 10:48 CT head/brain wo con Stat Hospital Course (1) Methamphetamine abuse: Patient was picked up by EMS for altered mental status, is reportedly on methamphetamine and reportedly saying he has HIV Urine drug screen positive for multiple substances Hx of admissions for methamphetamine; meth (+), MDMA (+), and marijuana (+) on 02/12/24 Patient is denying any thoughts of suicide or self-harm Patient is anxious to go home. He says he will leave AMA if he is not discharged. (2) Altered mental status: DDx includes methamphetamine intoxication, acute psychosis, schizophrenia, among other etiologies Hx of multiple [place] ED visits for IV methamphetamine use, hallucinations Admitted to [place] for mental health treatment in the past, but signed out He is now back to his usual baseline. This is toxic encephalopathy that has resolved (3) Homeless: Reportedly homeless He wishes to be discharged. If he is not discharged, he will leave AMA Plan Discharge today Total Time Total Time Spent Total Time Spent (In Minutes): 35 Discharge Plan Discharge Items Patient Disposition: Home - Self-Care Reason For Visit: AMS, METH USE Discharge Diagnosis: Methamphetamine abuse Toxic encephalopathy Activity: Resume your previous activity Non-emergency contact: Primary Care Provider Call non-emergency contact if: you have any medication questions and your symptoms worsen Follow-up/Referrals: PCP,NO [Primary Care Provider] - Diet: Regular Addtl Attending Provider Instructions: Advised to follow-up with PCP in 1 week Pending Studies at Discharge: No Stand-Alone Forms: My [facility] [employer], Smoking Cessation Medications and DC Order Prescriptions: Continued miconazole nitrate 2 % Cream 1 applic EXT BID Qty: 28 0RF Rx Instructions: apply small amount to feet twice a day Discharge Orders: Discharge Order (Routine); Ordered 03/29/24 Ordered By: Chelo Fu Admission Data Admit Date/Time: 03/28/24 17:52 Attending Provider: Chelo Fu Admit Provider: James Lyon Primary Care Provider: PCP,NO Other Providers: James Lyon Coding Level of Care Code 37006 INP/OBS DISCH >30 MIN Diagnoses Methamphetamine abuse F15.10 Altered mental status R41.82 Homeless Z59.00
== END 2024-03-29 14:01 | disposition home or self-care (01) ==
LOC: 2S 10:17 → ED 10:17 → SUATTDRO 17:52 → 2S 20:21

== ENCOUNTER 2025-08-21 10:53 | Observation (INO) ==
--- NOTE | 2025-08-21 11:10 | Emergency Department Note ---
Impression & Plan Methamphetamine use disorder, severe, dependence, Homeless, Tobacco use disorder, Anemia, Poisoning by sympathomimetics (adrenergics), Polysubstance use disorder ED Provider Note NAME: VIKTORIYA PEDERSON AGE: 30 SEX: M : 1995 ARRIVES VIA: Ambulance INFORMANT: Patient, EMS ED PROVIDER(S): Tucker Gordillo DO CHIEF COMPLAINT: psychiatric evaluation HPI: This is a 30-year-old male with the PMHx of polysubstance use disorder and homelessness as well as reported psychiatric history presenting to [facility] for further evaluation of psychiatric illness. Patient is accompanied by police and EMS who provide additional history. EMS was called by police after concerns of threats against individuals and suicide from the patient. Police note that the patient has outstanding warrants and will be placed under arrest. He notes suicidal ideations. He states that he is committed to playing a suicide game to kill himself. He states that he has hallucinations at baseline. He notes that he swallowed at least 300 mg of methamphetamine in a plastic bag when police arrived on scene. He denies attempt of suicide but rather to hide evidence. He states he does not care if this kills him. He denies any other ingestants at this time. He states he was previously on medications for mental health but no longer takes them. They deny fever or chills. No cough or congestion. Denies chest pain or palpitations. No shortness of breath. They deny abdominal pain, nausea and vomiting. No urinary complaints. No recent changes in bowel movements. Patient denies recent changes in medications or OTC supplements. Patient offers no other complaints, today. ADDITIONAL HISTORY OBTAINED: Per HPI Chronic Medical/Social Conditions Affecting Care: Per HPI PAST MEDICAL HISTORY: See Below PAST SURGICAL HISTORY: See Below FAMILY HISTORY: See Below SOCIAL HISTORY: See Below HOME MEDICATIONS: See Below ALLERGIES: See Below VITALS: See Below PHYSICAL EXAMINATION: GENERAL: Alert, well developed, well nourished, no acute distress HEAD: Normocephalic, atraumatic EYES: EOM's intact, sclera anicteric, conjunctiva clear OROPHARYNX: Airway patent and mucous membranes moist LUNGS: No respiratory distress, normal respiratory rate and effort HEART: Well perfused, tachycardic rate, regular rhythm ABDOMEN: Abdomen non-distended SKIN: Normal color, dry EXTREMITIES: No gross deformities, no edema NEURO: Alert, oriented x3, appropriate for age, moves all four extremities PSYCH: flight of ideas, somewhat pressured speech MEDICAL DECISION MAKING: Differential diagnoses includes but not limited to intoxication, bundle packer, superintendent local, adrenergic crisis, suicidal ideation, homicidal ideation, hallucinations, depression, anxiety, personality disorder In summary, this is a 30-year-old who presented for psychiatric evaluation. History is provided by the patient, EMS and police. Differential as above. Nursing notes and pertinent past medical records reviewed. Vital signs reviewed and the patient is hypertensive and tachycardic. He is otherwise afebrile and HDS. History, physical obtained and significant for polysubstance use disorder now with ingestion of large amount of reported methamphetamine. While the patient is forthcoming regarding his ingestion, it is very difficult to exclude coingestants. Patient disclosed that he swallowed 300 mg of methamphetamine in a plastic bag. Spoke with Dr. Ellison ([facility]) who recommended activated charcoal and observation for 6 hours. If severe symptoms of adrenergic crisis, plan for whole bowel irrigation. Dr. Ellison stated if he remains asymptomatic, can be discharged after 6 hours. Psychiatric labs including CBC, CMP, ethanol, COVID-19, U tox ordered to evaluate for their symptoms. EKG independently interpreted by me as normal sinus rhythm with sinus arrhythmia at a ventricular rate of [address] segment changes to suggest STEMI. QRS duration is 90 ms. QTc interval is 406 ms. Cardiac monitoring was ordered. IV was established. Labs show mild anemia. No leukocytosis. His electrolyte and kidney function are normal except mild hyperglycemia. No elevation of APAP or salicylates. Ethanol was normal. He requested nicotine replacement therapy. He was ordered a patch and counseled on cessation. Patient was given activated charcoal. The patient would not tolerate activated charcoal. Patient has been intermittently tachycardic and hypertensive. I have significant concerns with discharge to incarceration for this patient. The patient's facility would not be able to deal with an adrenergic crisis secondary to methamphetamine intoxication. I do have concerns that there could be a delayed response given his ingestion today. It is unclear if the patient had any other medications or drugs of abuse present in his ingestion. The patient should be closely monitored in the hospital. This was discussed with the hospitalist team and they were agreeable to admit the patient. The patient was admitted by Dr. Lyon after discussion by telephone. Consults/Care Managements Discussions: Per [facility] ER treatment provided: See above Procedures: none Critical Care: None The chart was completed utilizing [employer] voice recognition software. Grammatical errors, random word insertions, pronoun errors, and incomplete sentences are an occasional consequence of this system due to software limitations, ambient noise, and hardware issues. Any formal questions or concerns about the content, text, or information contained within the body of this dictation should be directly addressed to the physician for clarification. Past Med/Surg History Problem List Polysubstance use disorder (Acute) Poisoning by sympathomimetics (adrenergics) (Acute) Anemia (Acute) Tobacco use disorder (Acute) Alcohol use Methamphetamine use disorder, severe, dependence (Acute) Altered mental status (Acute) Methamphetamine abuse (Acute) Homeless (Acute) Medical History Accident caused by excessive cold due to weather conditions Trench feet No pertinent family history Drug addiction Surgical History No pertinent past surgical history Social History Smoking Status: Current every day smoker Tobacco Type: Cigarettes Cigarettes Per Day: 2-3; Second Hand Exposure: No; Do You Dip or Chew Tobacco: No; Hx Alcohol Use: No Hx Substance Use: Yes Last Used Substance: Just Prior to Arrival Last Used Substance Other:: yesterday Preferred Language: Danish 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 Beliefs That Will Affect Care: None Current Living Situation: Homeless Feels Safe at Home: Yes Gender Identity: Male Assistive Devices: None Allergies Allergies Allergy/AdvReac Type Severity Reaction Status Date / Time No Known Allergies Allergy Verified 08/17/24 07:48 Home Meds Home Medications Medication Instructions Recorded Confirmed No Known Home Medications 08/21/25 08/21/25 Results & Data (ED) Vital Signs Vital Signs - 24 hr 08/21/25 10:59 08/21/25 10:59 08/21/25 11:45 Temperature 36.6 C Temperature Source Oral Pulse Rate 120 H 94 H Pulse Rate from SpO2 Sensor Respiratory Rate 18 Respiratory Effort / Characteristics Non-Labored Spontaneous Respiratory Depth Normal Respiratory Pattern Regular Blood Pressure 159/101 H Blood Pressure Mean 120 Pulse Oximetry 98 98 Oxygen Delivery Method Room Air Room Air Sepsis Recent Fever Within 48 Hours No Sepsis New/Unexplained Change in Mental Status N/A Sepsis Action Taken by Nursing No Action Required 08/21/25 12:03 08/21/25 13:45 08/21/25 14:00 Temperature Temperature Source Pulse Rate 130 H 104 H 122 H Pulse Rate from SpO2 Sensor 105 H Respiratory Rate 23 12 22 Respiratory Effort / Characteristics Respiratory Depth Respiratory Pattern Blood Pressure 145/109 H 170/98 H Blood Pressure Mean 121 122 Pulse Oximetry 99 Oxygen Delivery Method Room Air Sepsis Recent Fever Within 48 Hours Sepsis New/Unexplained Change in Mental Status Sepsis Action Taken by Nursing 08/21/25 15:08 Temperature Temperature Source Pulse Rate Pulse Rate from SpO2 Sensor Respiratory Rate 20 Respiratory Effort / Characteristics Respiratory Depth Respiratory Pattern Blood Pressure 131/103 H Blood Pressure Mean 116 Pulse Oximetry 95 Oxygen Delivery Method Sepsis Recent Fever Within 48 Hours Sepsis New/Unexplained Change in Mental Status Sepsis Action Taken by Nursing Laboratory Data 08/22/25 04:52 08/22/25 04:52 Lab Results 08/21/25 Range/Units 11:10 WBC 5.85 (4.8-10.8) K/ul RBC 5.16 (4.70-6.10) M/uL Hgb 13.8 L (14.0-18.0) g/dl Hct 43.3 (42.0-52.0) % MCV 83.9 (80.0-100.0) fL MCH 26.7 (25.0-34.0) pg MCHC 31.9 L (32.0-36.0) g/dL RDW Std Deviation 43.2 (36.4-46.3) fL RDW Coeff of Dominic 14.0 (11.5-14.5) % Plt Count 327 (130-400) K/uL MPV 10.5 (9.4-12.4) fL Immature Gran % (Auto) 0.3 % Neut % (Auto) 67.0 % Lymph % (Auto) 20.0 % Treg[place] % (Auto) 11.5 % Eos % (Auto) 0.7 % Baso % (Auto) 0.5 % Neut # (Auto) 3.92 (1.40-6.50) K/uL Lymph # (Auto) 1.17 L (1.20-3.40) K/uL Trego # (Auto) 0.67 H (0.11-0.59) K/uL Eos # (Auto) 0.04 (0.00-0.50) K/uL Baso # (Auto) 0.03 (0.00-0.20) K/uL Immature Gran # (Auto) 0.02 (0.01-0.20) K/uL Sodium 138 (136-145) mmol/L Potassium 3.6 (3.5-5.1) mmol/L Chloride 102 (98-107) mmol/L Carbon Dioxide 28 (21-32) mmol/L Anion Gap 8 (3-11) BUN 10 (6-23) mg/dl Creatinine 0.95 (0.6-1.4) mg/dl Est Cr Clr Drug Dosing 137.1 ml/min eGFR 111.12 BUN/Creatinine Ratio 10.5 (10-20) Glucose 113 H (70-99(Fasting)) mg/dl Calcium 9.7 (8.6-10.3) mg/dl Total Bilirubin 0.6 (0.2-1.0) mg/dl AST 24 (13-39) U/L ALT 45 (7-52) U/L Alkaline Phosphatase 68 (34-104) U/L Total Protein 8.2 (6.0-8.3) gm/dl Albumin 5.1 H (3.4-5.0) gm/dl Globulin 3.1 (2.5-4.0) gm/dl Albumin/Globulin Ratio 1.6 (0.9-2) TSH 0.399 (0.300-4.500) uIu/ml Salicylates < 3.0 L (3.0-30) mg/dl Acetaminophen < 3 L (10-30) ug/ml Ethyl Alcohol mg/dL < 10.0 (<10.0) mg/dl Administered Medications Discontinued Medications Charcoal/Sorbitol (Activated Charcoal/Sorbitol 25 Gm/120 Ml Tube) 50 gm PO NOW STA Stop: 08/21/25 11:16 Last Admin: 08/21/25 11:58 Dose: Not Given Documented By: SHERIE Diazepam (Diazepam 5 Mg Tablet) 5 mg PO NOW ONE Stop: 08/21/25 21:16 Last Admin: 08/21/25 21:40 Dose: Not Given Documented By: SANCHEZ Haloperidol Lactate (Haloperidol Lactate 5 Mg/Ml 1 Ml Vial) 5 mg IV NOW STA Stop: 08/22/25 01:13 Last Admin: 08/22/25 06:00 Dose: Not Given Documented By: SABINO Magnesium Sulfate/Dextrose (Magnesium Sulfate / D5w) 1 gm in 100 mls @ 50 mls/hr IV ONE ONE Stop: 08/21/25 23:14 Last Infusion: 08/21/25 23:33 Dose: Infused Documented By: Admin: 08/21/25 21:33 Dose: 50 mls/hr Documented By: SANCHEZ Nicotine (Nicotine 21 Mg/24 Hr Tdsy) 1 patch TD QAM IGLESIA Stop: 09/20/25 11:14 Last Admin: 08/22/25 09:33 Dose: Not Given Documented By: Admin: 08/21/25 11:47 Dose: 1 patch Documented By: SHERIE Discharge Plan Visit Data Chief Complaint: Overdose (Accidental) ED Provider: Tucker Gordillo Discharge Problem: Methamphetamine use disorder, severe, dependence, Homeless, Tobacco use disorder, Anemia, Poisoning by sympathomimetics (adrenergics), Polysubstance use disorder Patient Disposition: Admitted As Inpatient Condition: Serious Discharge Instructions Interventions: ED Discharge Assessment Last Done: 08/21/25 17:55
[2025-08-21] MEDS: NICOTINE 21 MG/24 HR TDSY TD SCH (11:47)
[2025-08-21] MEDS: ACTIVATED CHARCOAL/SORBITOL 25 GM/120 ML TUBE PO STA (11:47)
[2025-08-21 12:12] LABS: Hematocrit (blood only) 43.3 % (42.0-52.0); Hemoglobin 13.8 g/dl (14.0-18.0); Immature Granulocytes # (auto) 0.02 K/uL (0.01-0.20); Immature Granulocytes % (auto) 0.3 %; Mean Corpuscular Hemoglobin 26.7 pg (25.0-34.0); Mean Corpuscular Volume 83.9 fL (80.0-100.0); Platelet Count 327 K/uL (130-400); RDW Standard Deviation 43.2 fL (36.4-46.3); Red Blood Count 5.16 M/uL (4.70-6.10); White Blood Count 5.85 K/ul (4.8-10.8)
[2025-08-21 12:29] LABS: Alanine Aminotransferase 45.0 U/L (7-52); Albumin Globulin Ratio 1.6 (0.9-2); Alkaline Phosphatase 68.0 U/L (34-104); Anion Gap 8.0 (3-11); Bilirubin,Total 0.6 mg/dl (0.2-1.0); Blood Urea Nitrogen 10.0 mg/dl (6-23); Calcium 9.7 mg/dl (8.6-10.3); Carbon Dioxide 28.0 mmol/L (21-32); Chloride 102.0 mmol/L (98-107); Creatinine Clr Calc Pharmacy 137.1 ml/min; Globulin 3.1 gm/dl (2.5-4.0); Glucose 113.0 mg/dl (70-99(Fasting)); Potassium 3.6 mmol/L (3.5-5.1); Sodium 138.0 mmol/L (136-145); Total Protein 8.2 gm/dl (6.0-8.3)
[2025-08-21 12:44] LABS: Thyroid Stimulating Hormone 0.399 uIu/ml (0.300-4.500)
[2025-08-21 12:51] LABS: Acetaminophen < 3 ug/ml (10-30); Salicylate < 3.0 mg/dl (3.0-30)
--- NOTE | 2025-08-21 15:00 | History & Physical Report ---
Date of Service August 21, 2025 Assessment & Plan (1) Methamphetamine abuse: Plan: Apparently he ingested an unknown quantity of methamphetamine to prevent please complication. Observation with telemetry. Currently hemodynamically stable (2) Alcohol use: Plan: Abuse in the past. Current alcohol level is less than 10 (3) Homeless: Plan: [facility] Plan Hemodynamic monitoring for at least 6 hours. He will be discharged into police custody due to outstanding warrants. Behavioral health assessment requested History of Present Illness Chief Complaint: Methamphetamine ingestion Primary Care Provider: ALIA PCP 30-year-old male with history of substance abuse and alcohol abuse. He apparently ingested an unknown amount of methamphetamine to prevent police from complicating the illicit drug. He was subsequently brought to the ED for evaluation. He will need to be monitored at least 6 hours before he can be discharged into police custody. EKG reveals normal sinus rhythm with heart rate approximately 90. Alcohol level is less than 10 on admission. Other lab studies are unremarkable. He was ordered oral charcoal in the ED. He is placed in observation at this time. Allergies Allergy/AdvReac Type Severity Reaction Status Date / Time No Known Allergies Allergy Verified 08/17/24 07:48 Home Medications Medication Instructions Recorded Confirmed Type miconazole nitrate 2 % topical 1 applic EXT BID #28 grams 03/05/24 04/19/24 Rx cream Past Med/Surg History Problem List Alcohol use Methamphetamine use disorder, severe, dependence (Acute) Altered mental status (Acute) Methamphetamine abuse (Acute) Homeless (Acute) Medical History Accident caused by excessive cold due to weather conditions Trench feet No pertinent family history Drug addiction Surgical History No pertinent past surgical history Social History Smoking Status: Current every day smoker Tobacco Type: Cigarettes Hx Alcohol Use: No Hx Substance Use: Yes Last Used Substance Other:: yesterday Preferred Language: Azerbaijani Communication Ability 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 Beliefs That Will Affect Care: None Current Living Situation: Homeless Feels Safe at Home: Yes Gender Identity: Male Assistive Devices: None Review of Systems 2 Review of Systems: Constitutionalno fever or chills ENTno blurred vision, no double vision, no epistaxis, no sore throat Respiratoryno cough, no wheezing, no shortness of breath Cardiacno palpitations, no chest pain, no syncope Shila nausea, vomiting, diarrhea, melena, hematochezia GUno urinary retention, no urinary incontinence, no dysuria, no hematuria Musculoskeletalno joint pain, no muscle tenderness Skinno bruising, no rashes, no pruritus Neurono isolated weakness, no paresthesia, no weakness Psychno depression, no anxiety Physical Exam 2 Physical Exam: General-alert and oriented x3, no fever, no chills HEENT-head atraumatic and normocephalic, pupils equal and reactive to light, extraocular muscles intact Neck-no lymphadenopathy or thyromegaly, trachea midline Chest-clear to auscultation. No rales, wheezing or rhonchi Cardiac-regular rate and rhythm, normal S1 and S2 Abdomen-normal bowel sounds, no hepatosplenomegaly Extremities-no cyanosis, clubbing, or edema Neuro-cranial nerves II through XII intact, motor and sensory function within normal limits, strength symmetrical, no focal deficits Psych-normal affect, normal mood Results & Data Results & Data Vital Signs (Past 12 Hours) Vital Signs Temp Pulse Resp BP Pulse Ox O2 Del Method 08/21/25 14:00 122 H 22 170/98 H 08/21/25 13:45 104 H 12 145/109 H 99 Room Air 08/21/25 12:03 130 H 23 08/21/25 11:45 94 H 08/21/25 10:59 98 Room Air 08/21/25 10:59 36.6 C 120 H 18 159/101 H 98 Room Air Laboratory Results 08/21/25 11:10 08/21/25 11:10 Code Status & VTE Plan Code Status Full code PG Care Time/CCT Total # of Minutes Spent Total Time Spent with Patient: Total time spent is greater than 50% in coordination of care (as documented) at patient's floor/unit and/or counseling patient: Coding Level of Care Code 63259 INT INP/OBS CARE 2/55MIN Diagnoses Methamphetamine abuse F15.10 Alcohol use Z78.9 Homeless Z59.00
[2025-08-21 17:20] LABS: Appearance Urine Clear (Clear); Bacteria Urine Automated None Seen (None Seen); Epithelial Cell Urine Auto 0-2 /hpf (0-2); Glucose Urine UA Negative (Negative); RBC Urine Automated 0-2 /hpf (0-2); WBC Urine Automated 0-5 /hpf (0-5)
[2025-08-21 17:23] LABS: Cast Urine Automated 0-2 /lpf (0-2)
[2025-08-21 17:38] LABS: Amphetamines+Metham, Urine Pos (Neg); MDMA (Ecstacy), Urine Pos (Neg); Marijuana, Urine Pos (Neg)
[2025-08-21] MEDS ORDERED: ONDANSETRON INJ 2 MG/ML 2 ML VIAL IV PRN (17:55)
[2025-08-21] MEDS ORDERED: ACETAMINOPHEN 325 MG TAB PO PRN (17:55)
[2025-08-21 18:08] VITALS: TEMP 98.1
--- NOTE | 2025-08-21 21:24 | Communication Note ---
Date of Service: August 21, 2025 Patient with episodes of tachycardia on monitor. HR as high as the 140's and 150's. Discernible p-waves present on monitor in room. Reviewed with Telemetry Financial Solutions Advisor - appears to be sinus tachycardia. No runs of SVT or wide complex tachycardia. Patient denies EtOH use. Denies pain, SOB, dizziness at present. Likely secondary to Amphetamine use as well as other substances and increased sympathetic tone. Patient states that he uses a lot of crystal meth. -Magnesium 1gm IV -Valium 5mg PO now -Will continue to monitor
[2025-08-21] MEDS: MAGNESIUM SULFATE / D5W 1 GM/100 ML BAG IV ONE (21:33)
[2025-08-22 05:31] LABS: Hematocrit (blood only) 43.9 % (42.0-52.0); Hemoglobin 14.1 g/dl (14.0-18.0); Immature Granulocytes # (auto) 0.02 K/uL (0.01-0.20); Immature Granulocytes % (auto) 0.2 %; Mean Corpuscular Hemoglobin 27.0 pg (25.0-34.0); Mean Corpuscular Volume 84.1 fL (80.0-100.0); Platelet Count 375 K/uL (130-400); RDW Standard Deviation 43.5 fL (36.4-46.3); Red Blood Count 5.22 M/uL (4.70-6.10); White Blood Count 9.05 K/ul (4.8-10.8)
[2025-08-22 05:46] LABS: Alanine Aminotransferase 40.0 U/L (7-52); Albumin Globulin Ratio 1.5 (0.9-2); Alkaline Phosphatase 69.0 U/L (34-104); Anion Gap 9.0 (3-11); Bilirubin,Total 0.7 mg/dl (0.2-1.0); Blood Urea Nitrogen 10.0 mg/dl (6-23); Calcium 10.0 mg/dl (8.6-10.3); Carbon Dioxide 26.0 mmol/L (21-32); Chloride 104.0 mmol/L (98-107); Creatinine Clr Calc Pharmacy 137.1 ml/min; Globulin 3.4 gm/dl (2.5-4.0); Glucose 104.0 mg/dl (70-99(Fasting)); Potassium 3.9 mmol/L (3.5-5.1); Sodium 139.0 mmol/L (136-145); Total Protein 8.5 gm/dl (6.0-8.3)
[2025-08-22] MEDS: HALOPERIDOL LACTATE 5 MG/ML 1 ML VIAL IV STA (06:00)
[2025-08-22 07:55] VITALS: BP 168/95; RESP 22; O2SAT 95
--- NOTE | 2025-08-22 08:03 | Discharge Summary ---
Discharge Summary Date of Service August 22, 2025 Principal Dx & Hospital Course #1 = Principal Diagnosis (1) Methamphetamine abuse: Apparently he ingested an unknown quantity of methamphetamine to prevent please complication. Unfortunately nursing staff states he took off his telemetry last evening. He is having sinus tachycardia which is to be expected after methamphetamine ingestion. However, at his age there is no concern for ischemic heart disease. Blood pressure is actually elevated. Again, at his age this is not a concern and will eventually normalize. (2) Alcohol use: Abuse in the past. Current alcohol level is less than 10 (3) Homeless: He resides at homeless residential Plan Discharge today, August 22, into the care of the state police. Behavioral health assessment requested but I do not see any notes from them and I assume it has not been done Admission HPI Per Admitting Provider 30-year-old male with history of substance abuse and alcohol abuse. He apparently ingested an unknown amount of methamphetamine to prevent police from complicating the illicit drug. He was subsequently brought to the ED for evaluation. He will need to be monitored at least 6 hours before he can be discharged into police custody. EKG reveals normal sinus rhythm with heart rate approximately 90. Alcohol level is less than 10 on admission. Other lab studies are unremarkable. He was ordered oral charcoal in the ED. He is placed in observation at this time. Discharge Exam General-alert and oriented x3, no fever, no chills HEENT-head atraumatic and normocephalic, pupils equal and reactive to light, extraocular muscles intact Neck-no lymphadenopathy or thyromegaly, trachea midline Chest-clear to auscultation. No rales, wheezing or rhonchi Cardiac-regular tachycardic rhythm. Normal S1 and S2 Abdomen-normal bowel sounds, no hepatosplenomegaly Extremities-no cyanosis, clubbing, or edema Neuro-cranial nerves II through XII intact, motor and sensory function within normal limits, strength symmetrical, no focal deficits Psych-flat affect Discharge Plan Discharge Items [facility] Disposition[facility] Reason For Visit: METHAMPHETAMINE INGESTION Discharge Diagnosis: Methamphetamine ingestion, sinus tachycardia Activity: Resume your previous activity Non-emergency contact: Primary Care Provider Call non-emergency contact if: your symptoms worsen Follow-up/Referrals: PCP,NO [Primary Care Provider] - Diet: Regular Addtl Attending Provider Instructions: Continued use of methamphetamine is discouraged Pending Studies at Discharge: No Skilled Items Patient informed of condition?: Yes DNR: No Discharge Level of Care: Other Communicable Disease: No Discharge Prognosis: Stable Lines: None Urinary Catheter: No Medications and DC Order Prescriptions: No Action No Known Home Medications Admission Data Admit Date/Time: 08/21/25 14:53 Attending Provider: James Lyon Admit Provider: James Lyon Primary Care Provider: PCP,NO Other Providers: James Lyon Hospital Stay Data Consultations 08/21/25 14:13 ED Decision to Admit Stat 08/21/25 17:55 Consult Behavioral Health Liaison Routine Pending Results Patient Have Any Pending Studies at Discharge: No Discharge Instructions Given to Patient (Per Discharging Provider) Continued use of methamphetamine is discouraged Total Time Total Time Spent Total Time Spent (In Minutes): 30 minutes Coding Level of Care Code 84261 INP/OBS DISCH >30 MIN Diagnoses Methamphetamine abuse F15.10 Alcohol use Z78.9 Homeless Z59.00
[2025-08-22 08:08] VITALS: PULSE 118
[2025-08-22 08:33] LABS: Creatine Kinase 212.0 U/L (30-223)
[2025-08-22] MEDS ORDERED: REMOVE NICODERM PATCH SCH (08:59)
--- NOTE | 2025-08-22 12:34 | Electrocardiogram Report ---
Test Reason : Blood Pressure : */* mmHG Vent. Rate : 82 BPM Atrial Rate : 82 BPM P-R Int : 200 ms QRS Dur : 90 ms QT Int : 348 ms P-R-T Axes : 94 58 47 degrees QTcB Int : 406 ms Normal sinus rhythm with sinus arrhythmia Poor R wave progression, consider anterior IA vs. lead placement vs. LVH Abnormal ECG When compared with ECG of 04-Jan-2025 12:44, Vent. rate has decreased by 56 bpm Borderline criteria for Inferior infarct are no longer Present Nonspecific T wave abnormality no longer evident in Lateral leads Confirmed by Janine Dickson ([id number]) on 08/22/2025 12:33:38 PM Referred By: REFERRED SELF Confirmed By: Janine Dickson
== END 2025-08-22 11:01 ==
LOC: SUATTDRO → EDINP 10:53 → ED 10:53 → EDINP 17:55